=== PATIENT | male | born 1945 | race Caucasian/White ===

== ENCOUNTER 2016-11-11 16:15 | Emergency (ER) | payer MEDICARE ==
[2016-11-11] MEDS ORDERED: SODIUM CHLORIDE 0.9% 500 ML IV ONE (18:47)
== END 2016-11-11 21:37 | disposition home or self-care (01) ==
LOC: ER 16:15
DX: R53.1 Weakness (principal); Z79.899 Other long term (current) drug therapy; Z87.891 Personal history of nicotine dependence
CPT/HCPCS: 36415; 70450; 80053; 82550; 82553; 84484; 85025; 85610; 85730; 93005; 96360; 96361; 99285; J7040